=== PATIENT | female | born 1985 | race Caucasian/White ===

== ENCOUNTER 2017-08-23 05:28 | Day surgery (SDC) | payer OTHER ==
[~2017-08-23] VITALS: Ht 157.5 cm; Wt 90.7 kg
[~2017-08-23 05:28] MED LIST: ALBUTEROL SULF8.5 GM IH; ALBUTEROL17 G1 IH; ALBUTEROL17 GM IH; AVELOX400 MG PO; Advair 250/50 Diskus IH; Advair HFA 115/21 IH; IBUPROFEN800 MG PO; Levaquin PO; MOTRIN800 MG PO; Medrol Dosepak PO; NOHOMEMEDS; PERCOCET 5/31 TABLET PO; PREDNISONE10 MG PO; PREDNISONE20 MG PO; PROMETHAZINE HC25 M1 PO; PROVENTIL,2.5 MG/0.5 IH; PROVENTIL,2.5 MG/3 M IH; Proventil,Ventolin H IH; TAMIFLU75 MG PO; TORADOL10 MG PO; TYLENOL EXTRA500 MG PO; TYLENOL REGULA325 MG PO; VENTOLIN HFA18 GM IH; ZOFRAN ODT4 MG PO; predniSONE PO
[2017-08-23 06:05] VITALS: BP 143/89
[2017-08-23 07:19] LABS: METH RESISTANT S AUREUS PCR NEGATIVE (NEGATIVE)
[2017-08-23 07:20] LABS: PROBE CHECK PASS; SPECIMEN PROCESSING CONTROL PASS
[2017-08-23] MEDS ORDERED: MOTRIN600 MG PO (09:21)
[2017-08-23] MEDS ORDERED: NORCO 5/3251 TABLET PO (09:21)
[2017-08-23 11:00] VITALS: BP 136/71
[2017-08-23 11:45] VITALS: BP 124/61
[2017-08-27 13:14] LABS: INTERNAL CONTROL VALID? YES
== END 2017-08-23 12:05 | disposition home or self-care (01) ==
LOC: SDC 05:28
PROVIDERS: Surgery
DX: N64.89 Other specified disorders of breast (principal); J45.909 Unspecified asthma, uncomplicated; F41.1 Generalized anxiety disorder; Z85.3 Personal history of malignant neoplasm of breast
CPT/HCPCS: 84703; 87641; 88302; J0131; J0690; J1100; J1170; J1885; J2250; J2405; J2550; J2765; J3010; S0020